=== PATIENT | male | born 1970 | race Caucasian/White ===

== ENCOUNTER 2023-01-25 06:58 | Day surgery (SDC) | payer OTHER ==
[2023-01-18 13:46] LABS: BASOPHILS # (AUTO) 0.1 X10'3 (0-0.2); BASOPHILS % (AUTO) 0.9 % (0-1); EOSINOPHILS % (AUTO) 0.6 % (0-6); LYMPHOCYTES # (AUTO) 2.4 X10'3 (1.1-4.8); LYMPHOCYTES % (AUTO) 38.6 % (21-51); MEAN CORPUSCULAR HEMOGLOBIN 30.1 PG (27.0-31.0); MEAN CORPUSCULAR HGB CONC 33.9 g/dL (33.0-36.5); MONOCYTES # (AUTO) 0.5 X10'3 (0-0.9); MONOCYTES % (AUTO) 8.6 % (2-12); NEUTROPHILS # (AUTO) 3.2 X10'3 (1.8-7.7); NEUTROPHILS % (AUTO) 51.3 % (42-75); PRE OP HEMATOCRIT 45.9 % (42.0-52.0); PRE OP HEMOGLOBIN 15.5 g/dL (14.0-17.9); PRE OP PLATELET COUNT 284 X10'3 (140-440); PRE OP WHITE BLOOD COUNT 6.2 10'3 (4.8-10.8); RED BLOOD COUNT 5.16 X10'6 (4.70-6.10); RED CELL DISTRIBUTION WIDTH 13.3 % (11.5-14.5)
[2023-01-18 13:56] LABS: ALBUMIN 4.1 G/DL (3.4-5.0); ALBUMIN/GLOBULIN RATIO 1.2 (1.1-1.5); ALKALINE PHOSPHATASE 80 IU/L (46-116); BLOOD UREA NITROGEN 13 MG/DL (7-18); BUN/CREATININE RATIO 12.1 (10.0-20.0); CALCIUM 9.2 MG/DL (8.5-10.1); CHLORIDE 105 MMOL/L (99-107); CREATININE 1.07 MG/DL (0.60-1.10); PRE OP ALT 33 U/L (30-65); PRE OP ANION GAP 5 (8-16); PRE OP AST 17 U/L (10-37); PRE OP BILIRUB, TOTAL 0.7 MG/DL (0.0-1.0); PRE OP GLUCOSE 116 MG/DL (70-104); PRE OP POTASSIUM 3.7 MMOL/L (3.4-5.1); PRE OP SODIUM 141 MMOL/L (135-145); TOTAL CARBON DIOXIDE 30.6 MMOL/L (24-32); TOTAL PROTEIN 7.5 G/DL (6.4-8.2); eGFR 72 ML/MIN
[2023-01-25] VITALS (13 sets, daily range): BP systolic 96–123; BP diastolic 54–80; PULSE 57–86; RESP 10–16; TEMP 98.4; O2SAT 98–100
[~2023-01-25] VITALS: Ht 188 cm; Wt 88.8 kg
[~2023-01-25 06:58] MED LIST: NAPR-56 PO; cefazolin 2gm/D5W 100mL 100 ML IV ONE; famotidine 20mg tablet PO ONE; ringers solution, lacted 1,000 ML IV SCH
--- NOTE | 2023-01-25 07:05 | NUR ---
PATIENT SHOWERED WITH KYLE X2.
[2023-01-25] MEDS ORDERED: cloNIDine hcl/PF 100mcg/ml inj ONE (08:18)
[2023-01-25] MEDS ORDERED: ROPIVAcaine 0.5% (5mg/ml) 30ml vial ONE (08:23)
[2023-01-25] MEDS ORDERED: propofol inj 20 ML IV ONE (08:27)
[2023-01-25] MEDS ORDERED: fentaNYL/PF 50MCG/1 ML 2ML syringe ONE (08:31)
[2023-01-25] MEDS ORDERED: midazolam 1 mg/ML 2ml injection ONE (08:32)
[2023-01-25] MEDS ORDERED: sevoflurane 250ml liquid IH ONE (08:59)
[2023-01-25] MEDS ORDERED: morphine 4 MG/ML inj SYRINge IV PRN (10:00)
[2023-01-25] MEDS ORDERED: proCHLORperazine 10 MG/2 ml inj IV PRN (10:00)
[2023-01-25] MEDS ORDERED: meperidine/PF 25mg/ml syringe IV PRN ×3 (10:00)
[2023-01-25] MEDS ORDERED: ringers solution, lacted 1,000 ML IV SCH (10:00)
[2023-01-25] MEDS ORDERED: ondansetron/PF 4mg/2ml inj IV PRN (10:00)
[2023-01-25] MEDS ORDERED: morphine 2 MG/ML inj. syringe IV PRN (10:00)
[2023-01-25] MEDS ORDERED: dexamethasone sod phosphate 4mg/ml inj. ONE (10:14)
[2023-01-25] MEDS ORDERED: ondansetron/PF 4mg/2ml inj ONE (10:14)
--- NOTE | 2023-01-25 10:26 | NUR ---
Received from OR via [facility], accompanied by Anesthesiologist and report given by Anesthesiologist AND RELAY TESTER. PT VERY DROWSY, NO S/S OF DISTRESS/DISCOMFORT. RIGHT SHOULDER W/LARGE GAUZE DRSG COVERED W/TAPE, CDI, SHOULDER WRAP ON, ARM IN SLING. POWDER PACK PLACED. Addendum: 01/25/23 at 1044 by Sofia Kessler RN Amended: Links added.
[2023-01-25] MEDS ORDERED: HYDROcodone/acetaminophen 10/325mg tab PO PRN (10:35)
--- NOTE | 2023-01-25 12:36 | NUR ---
PTS IN TO ASSIST W/MONICAG PT. PT UP AND ABLE TO AMBULATE SAFELY. D/C INSTRUCTIONS GIVEN AND GONE OVER W/PT AND HIS WHO VERBALIZED UNDERSTANDING. PT D/CD TO HOME VIA PRIVATE VEHICLE W/O INCIDENT. Addendum: 01/25/23 at 1252 by Sofia Kessler RN Amended: Links added.
== END 2023-01-25 12:36 | disposition home or self-care (01) ==
LOC: PAS 06:58
PROVIDERS: ATTEND Orthopaedic Surgery
DX: M75.41 Impingement syndrome of right shoulder (principal); M19.011 Primary osteoarthritis, right shoulder; M75.51 Bursitis of right shoulder; G89.18 Other acute postprocedural pain; F41.9 Anxiety disorder, unspecified; Z79.899 Other long term (current) drug therapy; Z87.442 Personal history of urinary calculi
CPT/HCPCS: 29824; 29826; 36415; 64415; 80053; 82948; 85025; 93005; J0690; J0735; J1100; J2250; J2405; J2704; J2795; J3010; J7120; Z7506; Z7508; Z7512; A4565; A4618; A6253; A6449; A7000